=== PATIENT | male | born 2000 | race Caucasian/White ===

== ENCOUNTER 2018-04-25 20:57 | Emergency (ER) | payer OTHER ==
[~2018-04-25] VITALS: Ht 175.3 cm; Wt 72.1 kg
[2018-04-25 21:02] VITALS: BP 144/89
--- NOTE | 2018-04-25 21:06 | NUR ---
TO LOBBY A/W BED AMBULATORY , SAMMY FERRERA NOTED
--- NOTE | 2018-04-25 21:14 | NUR ---
PT TAKEN TO BED 6
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
--- NOTE | 2018-04-25 21:48 | NUR ---
Dr. Espinoza evaluating patient at bedside.
--- NOTE | 2018-04-25 21:54 | NUR ---
PT TAKEN TO CT
--- NOTE | 2018-04-25 22:06 | NUR ---
PT RETURN FROM CT
[2018-04-25 23:42] VITALS: BP 135/81
--- NOTE | 2018-04-25 23:42 | NUR ---
Patient discharged with v/s stable. Written and verbal after care instructions given and explained. Patient alert, oriented and verbalized understanding of instructions. Ambulatory with steady gait. All questions addressed prior to discharge. ID band removed. Patient advised to follow up with PMD. Rx of NAPROSYN 500MG given. Patient educated on indication of medication including possible reaction and side effects. Opportunity to ask questions provided and answered.
== END 2018-04-25 23:42 | disposition home or self-care (01) ==
LOC: MED 20:57
DX: S33.5XXA Sprain of ligaments of lumbar spine, initial encounter (principal); V49.40XA Driver injured in collision with unspecified motor vehicles in traffic accident, initial encounter; Y93.89 Activity, other specified; Y92.488 Other paved roadways as the place of occurrence of the external cause; Y99.8 Other external cause status
CPT/HCPCS: 72131; 99284

== ENCOUNTER 2020-03-27 22:28 | Emergency (ER) | payer OTHER ==
[~2020-03-27] VITALS: Ht 175.3 cm; Wt 73.5 kg
[2020-03-27 22:31] VITALS: BP 121/81
--- NOTE | 2020-03-27 22:34 | NUR ---
PT AMBULATED TO BED #12
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
[2020-03-27 22:42] VITALS: BP 121/81
--- NOTE | 2020-03-27 22:46 | NUR ---
MAISHA DAMON AT BEDSIDE EVALUATING PT
--- NOTE | 2020-03-27 23:14 | NUR ---
Patient discharged with v/s stable. Written and verbal after care instructions given and explained. Patient alert, oriented and verbalized understanding of instructions. Ambulatory with steady gait. All questions addressed prior to discharge. ID band removed. Patient advised to follow up with PMD. Rx of LIDOCAINE given. Patient educated on indication of medication including possible reaction and side effects. Opportunity to ask questions provided and answered.
== END 2020-03-27 23:15 | disposition home or self-care (01) ==
LOC: MED 22:28
DX: K12.0 Recurrent oral aphthae (principal)
CPT/HCPCS: 99282

== ENCOUNTER 2020-05-23 19:17 | Emergency (ER) | payer OTHER ==
[~2020-05-23] VITALS: Ht 170.2 cm; Wt 72.6 kg
[2020-05-23 19:37] VITALS: BP 132/76
[2020-05-23] MEDS ORDERED: BACITRACIN OINT 500 UNITS/GM PKT TP ONE (19:50)
[2020-05-23 20:15] VITALS: BP 132/76
== END 2020-05-23 20:15 | disposition home or self-care (01) ==
LOC: MED 19:17
DX: S91.052A Open bite, left ankle, initial encounter (principal); Z88.1 Allergy status to other antibiotic agents; Z88.5 Allergy status to narcotic agent; W54.0XXA Bitten by dog, initial encounter; Y93.89 Activity, other specified; Y92.89 Other specified places as the place of occurrence of the external cause; Y99.8 Other external cause status
CPT/HCPCS: 90471; 90715; 99283

== ENCOUNTER 2021-03-29 14:10 | Emergency (ER) | payer OTHER ==
[~2021-03-29] VITALS: Ht 177.8 cm; Wt 88.5 kg
[2021-03-29 14:15] VITALS: BP 163/77
[2021-03-29] MEDS ORDERED: IBUPROFEN 600 MG TAB PO ONE (14:20)
[2021-03-29] MEDS ORDERED: SULF-58 PO (14:55)
[2021-03-29] MEDS ORDERED: BACI1PAC6 TP (14:55)
[2021-03-29] MEDS ORDERED: IBUP-2213 PO (14:55)
[2021-03-29] MEDS ORDERED: BACITRACIN OINT 500 UNITS/GM PKT TP ONE ×2 (15:10→15:15)
[2021-03-29 15:19] VITALS: BP 163/77
== END 2021-03-29 15:21 | disposition home or self-care (01) ==
LOC: MED 14:10
DX: S80.812A Abrasion, left lower leg, initial encounter (principal); Z88.1 Allergy status to other antibiotic agents; Z88.5 Allergy status to narcotic agent; Z79.899 Other long term (current) drug therapy; Z90.49 Acquired absence of other specified parts of digestive tract; X58.XXXA Exposure to other specified factors, initial encounter; Y93.64 Activity, baseball; Y92.89 Other specified places as the place of occurrence of the external cause; Y99.8 Other external cause status
CPT/HCPCS: 73560; 73590; 99284

== ENCOUNTER 2022-04-10 21:14 | Emergency (ER) | payer OTHER ==
[~2022-04-10] VITALS: Ht 177.8 cm; Wt 90.3 kg
[~2022-04-10 21:14] MED LIST: BACI1PAC6 TP; IBUP-2213 PO; SULF-58 PO
--- NOTE | 2022-04-10 22:00 | NUR ---
PT TAKEN TO BED 2
--- NOTE | 2022-04-10 22:00 | NUR ---
Dr. Espinoza examining patient.
[2022-04-10 22:10] VITALS: BP 131/75
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
[2022-04-10] MEDS: LIDOCAINE/EPI 2% 1:100000 20 ML VIAL INJ ONE (22:58)
[2022-04-10] MEDS: BACITRACIN OINT 500 UNITS/GM PKT TP ONE (22:58)
[2022-04-10] MEDS ORDERED: VANCOMYCIN 1,000 MG VIAL ONE (23:00)
[2022-04-10] MEDS: VANCOMYCIN 1,000 MG in DEXTROSE 5% 250 ML IV ONE (23:27)
[2022-04-11] MEDS ORDERED: CHLO480L2 TP (01:31)
[2022-04-11] MEDS ORDERED: SULF-59 PO (01:31)
[2022-04-11] MEDS ORDERED: NAPR-54 PO (01:31)
[2022-04-11 01:40] VITALS: BP 136/70
--- NOTE | 2022-04-11 01:40 | NUR ---
Patient discharged with v/s stable. Written and verbal after care instructions given and explained. Patient alert, oriented and verbalized understanding of instructions. Ambulatory with steady gait. All questions addressed prior to discharge. ID band removed. Patient advised to follow up with PMD. Rx of NAPROXEN, HIBICLENS, AND BACTRIM given. Patient educated on indication of medication including possible reaction and side effects. Opportunity to ask questions provided and answered.
== END 2022-04-11 01:37 | disposition home or self-care (01) ==
LOC: MED 21:14
DX: L03.314 Cellulitis of groin (principal); B95.62 Methicillin resistant Staphylococcus aureus infection as the cause of diseases classified elsewhere; Z88.5 Allergy status to narcotic agent; Z88.1 Allergy status to other antibiotic agents; Z90.49 Acquired absence of other specified parts of digestive tract
CPT/HCPCS: 36415; 87040; 87070; 93005; 96365; 96366; 99284; J3370